=== PATIENT | male | born 1985 | race Caucasian/White ===

== ENCOUNTER 2018-06-02 15:06 | Outpatient (CLI) | payer BC ==
--- NOTE | 2018-06-02 16:05 | MRI ---
MRI OF THE CERVICAL SPINE WITHOUT CONTRAST: 06/02/18 COMPARISON: None. HISTORY: Neck pain and headache with numbness in left shoulder for a few years. TECHNIQUE: Multiplanar and multisequence MRI images were obtained of the cervical spine without contrast. FINDINGS: Generalized disc desiccation is seen. Vertebral bodies and intervertebral discs demonstrate normal he ight and alignment without fracture or dislocation. The visualized cord demonstrates normal signal. T he craniocervical junction is unremarkable. The prevertebral and paraspinal soft tissues are unremark able. C2-C3: Unremarkable. C3-4: Minimal generalized concentric disc bulge is seen. No posterior facet arthrosis. No neural fora vicky or central canal stenosis. C4-5: A small disc osteophyte complex is seen. Mild left posterior facet arthrosis. Mild central karen l stenosis. Mild left neural foraminal stenosis. No right neural foraminal stenosis. C5-6: A small to moderate disc osteophyte complex is seen. Mild left posterior facet arthrosis. Moder ate central canal stenosis. Moderate left neural foraminal stenosis. No right neural foraminal stenos is. C6-7: A small disc osteophyte complex is seen. No posterior facet arthrosis. Mild central canal steno sis. Moderate left neural foraminal stenosis. No right neural foraminal stenosis. C7-T1: Unremarkable. IMPRESSION: Degenerative changes of the cervical spine as above. POS: [facility]
== END 2018-06-02 15:07 | disposition home or self-care (01) ==
LOC: SCSMRI 15:06
PROVIDERS: ATTEND Physician Assistant
DX: M54.2 Cervicalgia (principal); M47.892 Other spondylosis, cervical region
CPT/HCPCS: 72141